=== PATIENT | female | born 1990 | race Asian ===

== ENCOUNTER 2019-01-17 23:44 | Emergency (ER) | payer OTHER, SELFPAY ==
[2019-01-18 00:03] VITALS: BP 95/62; PULSE 64; RESP 14; TEMP 36.6; O2SAT 100; BMI 20.2
--- NOTE | 2019-01-18 00:13 | ED.FEVER ---
HPI - Fever General Chief Complaint: Fever Stated Complaint: fever, sore throat, cough, headache, lighthead x3d Time Seen by Provider: 01/18/19 00:10 Source: patient Mode of arrival: ambulatory Limitations: no limitations History of Present Illness HPI Narrative: Otherwise healthy 28-year-old female here for evaluation of multiple complaints to include fevers, lightheadedness, sinus congestion, sore throat for the past several days. Has not tried anything for symptoms except for Advil at home. She is active duty . Related Data Allergies Allergy/AdvReac Type Severity Reaction Status Date / Time No Known Drug Allergies Allergy Verified 01/18/19 00:02 Review of Systems Constitutional Reports chills, Reports fatigue, Reports fever(s) and Reports headache(s) ENT Ears, Nose, Mouth, and Throat: Reports headache(s) and Denies disequilibrium Cardiovascular Denies chest pain Respiratory Denies cough Gastrointestinal Gastrointestinal: Denies abdominal pain, Reports nausea and Denies vomiting Integumentary/Breasts Denies rash Neurologic Reports headache(s) and Denies disequilibrium Endocrine Reports fatigue Allergic/Immunologic Denies urticaria [facility] Medical History Healthy adult (Acute) Social History Smoking Status: Never smoker Social History Smoking Status: Never smoker Exam Initial Vital Signs Initial Vital Signs: Vital Signs Temperature 97.9 F 01/18/19 00:03 Pulse Rate 64 01/18/19 00:03 Respiratory Rate 14 01/18/19 00:03 Blood Pressure 95/62 01/18/19 00:03 Pulse Oximetry 100 01/18/19 00:03 Const General: cooperative, healthy appearing, comfortable, well developed, well groomed and No acute distress Orientation: alert, awake and oriented x3 HENMT Head: normal to inspection and normocephalic Ears: TM's normal bilaterally Nose: external nose normal Face and sinus: normal facial exam Mouth: oral mucosae normal Throat: posterior oropharynx normal Resp Effort & Inspection: normal respiratory effort Auscultation: clear to auscultation bilaterally Cardio Rate: regular rate Rhythm: regular rhythm Skin Lesions: no lesions Rashes: no rashes Neuro General: alert, awake and oriented x3 Cognition: normal cognition Speech: speech normal Extrem General: normal to inspection and capillary refill normal Psych Appearance: grossly normal and well kempt Course Orders Ordered: ED Orders 01/18/19 00:03 Influenza A and B by PCR Rapid Stat Vital Signs - 8 hr 01/18/19 00:03 01/18/19 01:20 Temperature 97.9 F 97.9 F Pulse Rate 64 63 Respiratory Rate 14 14 Blood Pressure 95/62 97/60 Pulse Oximetry 100 99 MDM - Fever Lab Data Attestation: I reviewed the patient's lab results. Lab Results 01/18/19 Range/Units 00:03 Influenza A & B (PCR) Negative (Negative) MDM Narrative Medical decision making narrative: Flu is negative, lungs are clear, nontoxic appearing. Suspect viral URI. Will hold on further workup for now. Patient was given return precautions. She expressed understanding agreement plan. No indication for antibiotics. Discharge Plan Departure Patient Disposition: Home Clinical Impression: Upper respiratory infection Qualifiers: URI type: unspecified URI Qualified Code(s): J06.9 - Acute upper respiratory infection, unspecified Discharge Date/Time: 01/18/19 01:20 Interventions: ED Discharge Assessment Last Done: 01/18/19 01:20 Instructions: DI for Viral Upper Respiratory Infection -- Adult Activity Restrictions/Additional Instructions: I do recommend that you start taking a decongestant such as Claritin or Valeri or Zyrtec. Talk with her medical department about further work-related restrictions. You can take Tylenol and/or Motrin for any fevers or body aches. Stand Alone Forms: Work Release Note
[2019-01-18 00:30] LABS: Influenza A and B by PCR Rapid Negative (Negative)
[2019-01-18 01:20] VITALS: BP 97/60; PULSE 63; RESP 14; TEMP 36.6; O2SAT 99
== END 2019-01-18 01:20 | disposition home or self-care (01) ==
PROVIDERS: Emergency Provider Emergency Medicine
DX: J06.9 Acute upper respiratory infection, unspecified (principal); R42 Dizziness and giddiness
CPT/HCPCS: 87400; 99282

== ENCOUNTER 2019-07-09 22:51 | Emergency (ER) | payer OTHER, SELFPAY ==
[2019-07-09 22:56] VITALS: BP 110/60; PULSE 71; RESP 18; TEMP 37.3; O2SAT 100
--- NOTE | 2019-07-09 23:04 | DI.RAD.S_ITS ---
PROCEDURE: XR CHEST 2V INDICATIONS: cough/fever/congestion >1wk TECHNIQUE: 2 views of the chest were acquired. COMPARISON: None. FINDINGS: Surgical changes and devices: None. Lungs and pleura: Lungs are clear. No pleural effusions or pneumothorax. Mediastinum: Mediastinal contours are normal. Heart size is normal. Bones and chest wall: No suspicious bony abnormalities. Soft tissues appear unremarkable. IMPRESSION: No acute cardiopulmonary disease. Dictated by: Jemima Vickers M.D. on 07/10/2019 at 8:48 Approved by: Jemima Vickers M.D. on 07/10/2019 at 8:48
[2019-07-09 23:21] LABS: Influenza A and B by PCR Rapid Negative (Negative)
--- NOTE | 2019-07-09 23:51 | ED_ITS ---
HPI - Fever General Chief Complaint: Fever Stated Complaint: HEADACHE COUGH FEVER Time Seen by Provider: 07/09/19 23:06 Source: patient Mode of arrival: Ambulatory Limitations: no limitations History of Present Illness HPI Narrative: 28-year-old female here for evaluation of sinus congestion, sore throat, cough, fevers, body aches, headache. Patient states she thinks she has the flu. She states that this has been going on for the past 3 weeks. She has been using [id number] NyQuil and DayQuil for her symptoms but no other treatments. Related Data Previous Rx's Medication Instructions Recorded benzonatate [Tessalon Perles] 100 mg PO BID PRN #14 cap 07/09/19 Allergies Allergy/AdvReac Type Severity Reaction Status Date / Time No Known Drug Allergies Allergy Verified 01/18/19 00:02 Review of Systems Constitutional Constitutional: Reports body ache(s), Reports chills, Reports fever(s) and Reports headache(s) ENT Ears, Nose, Mouth, and Throat: Denies vertigo, Denies dizziness, Reports headache(s), Reports sinus pressure and Reports sore throat Cardiovascular Cardiovascular: Denies chest pain and Denies dyspnea Respiratory Respiratory: Reports cough and Denies dyspnea Gastrointestinal Gastrointestinal: Denies abdominal pain Genitourinary Genitourinary: Denies dysuria Musculoskeletal Musculoskeletal: Denies myalgias and Denies arthralgias Integumentary/Breasts Skin/Breast: Denies lesions and Denies rash Neurologic Neurologic: Denies vertigo, Denies dizziness and Reports headache(s) Hematologic/Lymphatic Hematologic/Lymphatic: Denies easy bleeding and Denies easy bruising [facility] Medical History Healthy adult (Acute) Social History Smoking Status: Never smoker Social History Smoking Status: Never smoker Exam Initial Vital Signs Initial Vital Signs: Vital Signs Temperature 99.1 F 07/09/19 22:56 Pulse Rate 71 07/09/19 22:56 Respiratory Rate 18 07/09/19 22:56 Blood Pressure 110/60 07/09/19 22:56 Pulse Oximetry 100 07/09/19 22:56 Const General: cooperative, comfortable, well developed and well groomed Orientation: awake and oriented x3 HENMT Ears: TM abnormal bulging bilaterally, dull bilaterally and with fluid behind the TM bilaterally; not erythematous Nose: external nose normal Resp Effort & Inspection: normal respiratory effort Auscultation: clear to auscultation bilaterally Cardio Rate: regular rate Rhythm: regular rhythm Skin Lesions: no lesions Rashes: no rashes Neuro General: alert and awake Cognition: normal cognition Speech: speech normal Motor: muscle tone normal throughout Extrem General: normal to inspection and capillary refill normal Psych Appearance: grossly normal and well kempt Scores [employer] [place] coma scale eye opening: Spontaneous [place]ad coma scale verbal response: Orientated [place] coma scale motor response: Obey commands [place] coma scale total score: 15 Course Orders Ordered: ED Orders 07/09/19 23:00 Influenza A and B by PCR Rapid Stat 07/09/19 23:04 Chest [XR chest 2V] Stat Vital Signs Vital signs: Vital Signs - 8 hr 07/09/19 22:56 Temperature 99.1 F Pulse Rate 71 Respiratory Rate 18 Blood Pressure 110/60 Pulse Oximetry 100 MDM - Fever Lab Data Attestation: I reviewed the patient's lab results. Labs: Lab Results 07/09/19 Range/Units 23:00 Influenza A & B (PCR) Negative (Negative) Imaging Data Chest x-ray: Attestation: I personally reviewed and interpreted this imaging study as follows: My impression: No pneumonia, normal size heart, no pneumothorax [facility] Narrative Medical decision making narrative: Patient with 3 weeks of symptoms. Chest x- ray is unremarkable. flu is negative. do suspect viral URI. No indication for antibiotics. We discussed symptomatic treatment. She expressed understanding and agreement plan. Discharge Plan Departure Patient Disposition: Home Clinical Impression: Acute upper respiratory infection Discharge Date/Time: 07/10/19 00:06 Instructions: DI for Viral Upper Respiratory Infection -- Adult Activity Restrictions/Additional Instructions: Recommend that you contact your primary provider for a follow-up. I do recommend you start on a decongestant such as Claritin or Valeri or Zyrtec. You can buy the generic versions of these medications. Also recommend that you start a nasal spray such as Flonase or Nasonex. You can also by these [id number]. Return to the emergency department for any new or worsening symptoms Prescriptions: New benzonatate [Tespj Cha] 100 mg capsule 100 mg PO BID PRN (Reason: cough) Qty: 14 RF: 0 Stand Alone Forms: Work Release Note
== END 2019-07-10 00:06 | disposition home or self-care (01) ==
PROVIDERS: Emergency Provider Emergency Medicine
DX: J06.9 Acute upper respiratory infection, unspecified (principal); R05 Cough; R50.9 Fever, unspecified; R09.81 Nasal congestion
CPT/HCPCS: 71046; 87400; 87502; 99282; 99283